=== PATIENT | male | born 1995 | race Caucasian/White ===

== ENCOUNTER 2018-07-18 20:01 | Emergency (ER) | payer MEDICAID, OTHER ==
[2018-07-18] MEDS: IBUPROFEN 800 MG TAB PO (20:29)
[2018-07-18] MEDS: AMOXICILLIN 500 MG CAP PO (20:36)
== END 2018-07-18 21:00 | disposition home or self-care (01) ==
LOC: E/R 20:01
DX: J02.9 Acute pharyngitis, unspecified (principal)
CPT/HCPCS: 99283; Z7502

== ENCOUNTER 2018-07-24 13:34 | Emergency (ER) | payer MEDICAID ==
[2018-07-24] MEDS: ONDANSETRON (ODT) 4 MG TAB ODT (15:25)
== END 2018-07-24 16:35 | disposition home or self-care (01) ==
LOC: FTE 13:34
DX: R11.10 Vomiting, unspecified (principal)
CPT/HCPCS: 99283; Z7502